=== PATIENT | male | born 1995 | race African-American/Black ===

== ENCOUNTER 2022-03-18 21:45 | Emergency (ER) | payer OTHER ==
[~2022-03-18] VITALS: Ht 167.6 cm; Wt 60.8 kg
[2022-03-18 22:00] VITALS: BP_SYST 135
--- NOTE | 2022-03-18 22:04 | NUR ---
Patient to ER bed 8 to gown for evaluation. Side rails up. Report given to Kei CALVILLO(emiliano).
--- NOTE | 2022-03-18 22:10 | NUR ---
patient complaining of upper right tooth pain with swelling. patient reports he's had an impacted upper right wisdom tooth and unable to find a dentist. swelling noted to right cheek. Pain 10/10
--- NOTE | 2022-03-18 22:28 | NUR ---
Pt moved to [address].Report given to Arielle CALVILLO.
--- NOTE | 2022-03-18 22:54 | NUR ---
ER Dr. Henry at bedside examining patient.
[2022-03-18] MEDS: KETOROLAC TROMETHAMINE 30 MG VIAL IM ONE (23:15)
[2022-03-18] MEDS: LIDOCAINE VISCOUS 2%, 15 ML UDC MM ONE (23:15)
[2022-03-18] MEDS: ONDANSETRON 4 MG ODT TAB PO ONE (23:16)
[2022-03-18] MEDS: AMOXICILLIN/CLAVULANATE POTASSIUM 875 MG TABLET PO ONE (23:16)
[2022-03-18] MEDS ORDERED: IBUP-1969 PO (23:41)
[2022-03-18] MEDS ORDERED: AUG875 PO (23:41)
[2022-03-18] MEDS ORDERED: BENZ11.95 DT (23:41)
[2022-03-19] VITALS: BP_SYST 122
--- NOTE | 2022-03-19 | NUR ---
Patient given written and verbal discharge instructions and verbalizes understanding. ER MD discussed with patient the results and treatment provided. Patient in stable condition. ID arm band removed. Rx of augmentin, orajel, ibuprofen given. Patient educated on pain management and to follow up with PMD. Pain Scale 0/10 Opportunity for questions provided and answered. Medication side effect fact sheet provided.
== END 2022-03-19 | disposition home or self-care (01) ==
LOC: SED 21:45
DX: R51.9 Headache, unspecified (principal); Z88.5 Allergy status to narcotic agent; Z79.899 Other long term (current) drug therapy
CPT/HCPCS: 96372; 99284; J1885; J2001; Q0162